=== PATIENT | female | born 1990 | race Caucasian/White ===

== ENCOUNTER → 2016-12-21 | Outpatient (CLI) | payer BC ==
[~2016-12-21] MED LIST: ACETAMINOPHEN325 MG PO; APNO TOP; CLARITIN10 M3 PO; DERMOPLAST SPRA56 GM TOP; DULCOLAX5 MG PO; LANSINOH7 GM TOP; MOTRIN800 MG PO; PRENATAL 1+1)(P1 TAB PO; SURFAK240 MG PO; TUCKS1 EACH TOP
== END | disposition disaster alternative care site (69) ==
LOC: GRAD 07:26
DX: S83.241A Other tear of medial meniscus, current injury, right knee, initial encounter (principal); M22.41 Chondromalacia patellae, right knee